=== PATIENT | male | born 1945 | race Hispanic/Latino ===

== ENCOUNTER 2018-07-03 17:26 | Inpatient (IN) | payer MEDICARE ==
[~2018-07-03] VITALS: Ht 165.1 cm; Wt 75.0 kg
[~2018-07-03 17:26] MED LIST: AMLO1CAP12 PO; GLIP1TAB6 PO; PIOG30TA10 PO; PRAV40TA3 PO; SERT25TA5 PO; SITA100T12 PO
[2018-07-03 18:26] LABS: BASOPHILS % (AUTO) 0.5 % (0.0-5.0); EOSINOPHILS % (AUTO) 0.8 % (0.0-8.0); HEMATOCRIT 38.5 % (42-54); LYMPHOCYTES % (AUTO) 16.6 % (21.0-51.0); MEAN CORPUSCULAR HEMOGLOBIN 29.1 pg (27.0-33.0); MEAN CORPUSCULAR HGB CONC 33.2 g/dL (32.0-36.0); MEAN CORPUSCULAR VOLUME 87.7 fL (79-99); MONOCYTES % (AUTO) 7.8 % (3.0-13.0); NEUTROPHILS % (AUTO) 74.3 % (40.0-77.0); NUCLEATED RED BLOOD CELLS 0.1 % (0.0-0.19); PLATELET COUNT (AUTO) 142 K/uL (130-400); RED BLOOD CELL COUNT(AUTO) 4.39 MIL/uL (4.50-6.20); WHITE BLOOD COUNT (AUTO) 10.4 K/uL (4.8-10.8)
[2018-07-03 18:34] LABS: CREATININE 0.8 mg/dL (0.5-1.5); POTASSIUM 4.7 mmol/L (3.5-5.1)
[2018-07-03 18:36] LABS: APPEARANCE,URINE Clear (CLEAR); BILIRUBIN,URINE Negative (NEGATIVE); COLOR,URINE Yellow (YELLOW); GLUCOSE, URINE (UA) 250 mg/dL (NEGATIVE); KETONES,URINE Negative (NEGATIVE); LEUKOCYTE ESTERASE ,URINE Negative (NEGATIVE); NITRATE,URINE Negative (NEGATIVE); OCCULT BLOOD,URINE Nonhemolyzed Trace (NEGATIVE); PH,URINE 6.5 (5.0-8.0); PROTEIN,URINE Negative (NEGATIVE); UROBILINOGEN,URINE 0.2 mg/dL (0.2-1.0)
[2018-07-03 18:39] LABS: ALBUMIN 3.7 g/dL (3.5-5.0); BILIRUBIN,TOTAL 0.5 mg/dL (0.2-1.0); TOTAL PROTEIN, SERUM 8.3 g/dL (6.0-8.3)
[2018-07-03 18:47] LABS: WBC,URINE 0-1 /HPF (0-1)
[2018-07-03 18:48] LABS: BACTERIA,URINE Rare /HPF (None Seen); SQUAMOUS EPITHELIAL CELL,UR Rare /HPF (0-2)
[2018-07-03] MEDS ORDERED: BISACODYL 10 MG SUPP.RECT RC ONE (19:06)
[2018-07-03] MEDS ORDERED: GLUCAGON 1MG KIT 1 MG ML IM PRN (22:00)
[2018-07-03] MEDS ORDERED: DEXTROSE 50%-WATER 50 ML DISP.SYRIN IV PRN (22:00)
[2018-07-03 22:09] LABS: HEMOGLOBIN A1C 7.4 % (4.0-6.0)
[2018-07-03] MEDS ORDERED: LACTULOSE 20 GM/30 ML UDCUP PO ONE (22:15)
[2018-07-03] MEDS ORDERED: LACTULOSE 20 GM/30 ML UDCUP PO PRN (22:15)
[2018-07-03] MEDS ORDERED: HYDROCODONE/ACETAMINOPHEN 5/325 MG TAB PO PRN ×2 (23:15)
[2018-07-03] MEDS ORDERED: ACETAMINOPHEN 325 MG TAB PO PRN (23:15)
[2018-07-03] MEDS ORDERED: ONDANSETRON HCL 4 MG/2 ML VIAL IV PRN (23:15)
[2018-07-04 03:44] VITALS: BP 132/74
[2018-07-04] MEDS: SODIUM CHLORIDE 0.9% 1000ML 1,000 ML IV SCH ×4 (04:00→23:56)
[2018-07-04] MEDS: INSULIN HUMULIN R 100 UNIT/ML 3ML SQ SCH ×4 (06:19→20:22)
[2018-07-04 06:26] LABS: BASOPHILS % (AUTO) 0.6 % (0.0-5.0); HEMATOCRIT 36.2 % (42-54); LYMPHOCYTES % (AUTO) 10.9 % (21.0-51.0); MEAN CORPUSCULAR HEMOGLOBIN 29.4 pg (27.0-33.0); MEAN CORPUSCULAR HGB CONC 33.6 g/dL (32.0-36.0); MEAN CORPUSCULAR VOLUME 87.5 fL (79-99); MONOCYTES % (AUTO) 7.4 % (3.0-13.0); NEUTROPHILS % (AUTO) 81.1 % (40.0-77.0); PLATELET COUNT (AUTO) 166 K/uL (130-400); RED BLOOD CELL COUNT(AUTO) 4.13 MIL/uL (4.50-6.20); RED CELL DISTRIBUTION WIDTH 15.2 % (11.0-15.5); WHITE BLOOD COUNT (AUTO) 13.4 K/uL (4.8-10.8)
[2018-07-04 06:39] LABS: ALBUMIN 3.1 g/dL (3.5-5.0); BILIRUBIN,TOTAL 0.7 mg/dL (0.2-1.0); CREATININE 0.9 mg/dL (0.5-1.5); POTASSIUM 4.1 mmol/L (3.5-5.1); TOTAL PROTEIN, SERUM 7.1 g/dL (6.0-8.3)
[2018-07-04 08:31] VITALS: BP 109/57
[2018-07-04] MEDS ORDERED: PANTOPRAZOLE SODIUM 40 MG TABLET.DR PO SCH (09:00)
[2018-07-04] MEDS ORDERED: ENOXAPARIN SODIUM 30 MG/0.3 ML SQ SCH (09:00)
[2018-07-04 12:01] VITALS: BP 110/55
[2018-07-04 17:08] VITALS: BP 129/63
[2018-07-04 19:33] VITALS: BP 139/67
[2018-07-04 23:25] VITALS: BP 129/64
[2018-07-05 03:00] VITALS: BP 139/56
[2018-07-05] MEDS ORDERED: METFORMIN HCL 500 MG TABLET PO SCH (08:00)
[2018-07-05] MEDS ORDERED: GLIPIZIDE 5 MG TABLET PO SCH (08:00)
[2018-07-05 08:42] VITALS: BP 133/62
[2018-07-05] MEDS ORDERED: LINAGLIPTIN 5 MG TABLET PO SCH (09:00)
[2018-07-05] MEDS ORDERED: AMLODIPINE-BENAZEPRIL 5-20 MG PO SCH (09:00)
[2018-07-05] MEDS ORDERED: ATORVASTATIN CALCIUM 10 MG TABLET PO SCH (09:00)
[2018-07-05] MEDS ORDERED: SERTRALINE HCL 50 MG TABLET PO SCH (09:00)
[2018-07-05] MEDS ORDERED: PIOGLITAZONE HCL 30 MG TAB PO SCH (09:00)
[2018-07-05 09:13] LABS: HEMATOCRIT 37.4 % (42-54); MEAN CORPUSCULAR HEMOGLOBIN 28.6 pg (27.0-33.0); MEAN CORPUSCULAR HGB CONC 32.5 g/dL (32.0-36.0); PLATELET COUNT (AUTO) 154 K/uL (130-400); RED BLOOD CELL COUNT(AUTO) 4.26 MIL/uL (4.50-6.20); RED CELL DISTRIBUTION WIDTH 15.1 % (11.0-15.5); WHITE BLOOD COUNT (AUTO) 9.5 K/uL (4.8-10.8)
[2018-07-05 09:20] LABS: CREATININE 0.9 mg/dL (0.5-1.5); POTASSIUM 3.9 mmol/L (3.5-5.1)
[2018-07-05] MEDS ORDERED: NAPR-1023 PO (11:37)
[2018-07-05] MEDS ORDERED: KETOROLAC TROMETHAMINE 30MG/ML IV SCH (11:45)
[2018-07-05 13:43] VITALS: BP 149/68
== END 2018-07-05 16:30 | disposition home or self-care (01) | DRG 389 ==
LOC: EDH 17:26 → EDHIP 21:51 → 3AH 07-04 03:01
PROVIDERS: ADMIT Internal Medicine; ATTEND Internal Medicine
DX: K56.41 Fecal impaction (principal); N13.30 Unspecified hydronephrosis; R33.9 Retention of urine, unspecified; E11.9 Type 2 diabetes mellitus without complications; E78.2 Mixed hyperlipidemia; I10 Essential (primary) hypertension; Z86.010 Personal history of colon polyps
CPT/HCPCS: 36415; 73562; 74176; 80048; 80053; 81001; 82948; 83036; 85025; 85027; J1650; J1815